=== PATIENT | female | born 1950 | race Caucasian/White ===

== ENCOUNTER 2016-08-01 10:06 | Day surgery (SDC) | payer OTHER ==
[2016-07-31 10:30] LABS: BASOPHIL % 0.5 % (0-2); PLATELET COUNT 208 x10^3mcL (130-400); RED CELL DISTRIBUTION WIDTH 12.4 % (11.5-14.5)
[2016-07-31 10:58] LABS: ALBUMIN 4.2 g/dL (3.4-5.0); ALKALINE PHOSPHATASE 74 U/L (46-116); ALT/SGPT 18 U/L (14-59); AST/SGOT 17 U/L (15-37); BILIRUBIN TOTAL 0.2 mg/dL (0.20-1.00); CALCIUM 9.7 mg/dL (8.5-10.1); CARBON DIOXIDE 30.3 mmol/L (21-32); CHLORIDE SERUM 103 mmol/L (98-107); CREATININE SERUM 0.9 mg/dL (0.6-1.0); GFR1 > 60 mL/min; GLUCOSE SERUM 101 mg/dL (74-106); POTASSIUM SERUM 4.8 mmol/L (3.5-5.1); SODIUM SERUM 139 mmol/L (136-145); TOTAL PROTEIN, SERUM 7.7 g/dL (6.4-8.2)
[~2016-08-01] VITALS: Ht 157.5 cm; Wt 61.7 kg
[2016-08-01 11:05] VITALS: BP 122/72
[2016-08-01 16:01] VITALS: BP 139/72
[2016-08-01 16:05] LABS: CHOLESTEROL/HDL RATIO 4.2; PHOSPHOROUS 3.6 mg/dL (2.5-4.9)
[2016-08-01 16:06] VITALS: Ht 157.5 cm; Wt 61.7 kg
[2016-08-01 16:11] LABS: T3 TOTAL 0.96 ng/mL
[2016-08-01 16:35] LABS: FREE T4 1.26 ng/dL (0.76-1.46); FREE THYROXINE INDEX 3.4 ug/dL (1.4-4.5); T4(THYROXINE) 9.5 ug/dL (4.7-13.3)
[2016-08-01 22:02] VITALS: BP 121/67
[2016-08-02 06:01] LABS: BASOPHIL % 0.3 % (0-2); PLATELET COUNT 178 x10^3mcL (130-400); RED CELL DISTRIBUTION WIDTH 12.8 % (11.5-14.5)
[2016-08-02 06:09] LABS: CALCIUM 8.7 mg/dL (8.5-10.1); CARBON DIOXIDE 27.6 mmol/L (21-32); CHLORIDE SERUM 107 mmol/L (98-107); CREATININE SERUM 0.8 mg/dL (0.6-1.0); GFR1 > 60 mL/min; GLUCOSE SERUM 111 mg/dL (74-106); POTASSIUM SERUM 4.8 mmol/L (3.5-5.1); SODIUM SERUM 141 mmol/L (136-145)
[2016-08-02 06:13] LABS: PHOSPHOROUS 4.3 mg/dL (2.5-4.9)
[2016-08-02 09:21] VITALS: BP 117/63
[2016-08-02 12:25] VITALS: BP 117/63
[2016-08-02 13:03] VITALS: BP 93/53
[2016-08-02] MEDS ORDERED: NOR10T PO (13:32)
== END 2016-08-02 14:20 | disposition home or self-care (01) ==
LOC: DS 10:06 → DU 10:06 → OR 10:06 → MU 10:06 → OR 12:00 → MU 15:58 → DU 16:50 → DS 08-02 14:20
PROVIDERS: Family Medicine; Surgery
PROC: 0FT44ZZ Resection of Gallbladder, Percutaneous Endoscopic Approach (ICD-10-PCS; principal; 2016-08-01 12:00)
DX: K80.20 Calculus of gallbladder without cholecystitis without obstruction (principal); R73.03 Prediabetes
CPT/HCPCS: 82962; 83880; 84439; 94150; J0295; J0330; J0690; J2175; J2250; J2405; J2704; J2710; J3010; J3490; J7030; J7120; Q0092